=== PATIENT | female | born 1970 | race Two or more races ===

== ENCOUNTER 2024-05-20 13:43 | Emergency (ER) | payer MEDICAID, OTHER ==
[~2024-05-20] VITALS: Ht 152.4 cm; Wt 68.9 kg
--- NOTE | 2024-05-20 14:06 | ED.PDOC ---
Musculoskeletal HPI Comments HPI: Poor Historian. 53-year-old female complains of at least one month history of left lower extremity generalized pain. Patient is status post left fracture of femur proximally four months ago. That was due to a fall. Patient continues to have pain. Her PCP sent her today to rule out DVT. Patient denies any associated chest pain or shortness of breath. Patient denies any allergies Vital Signs BP: 163/62 HR: 83 Temp: 99 F SPO2: 97% RA RR: 16 Past medical history: Denies Past surgical history: Denies REVIEW OF SYSTEMS: CONSTITUTIONAL: Denies acute: fever, diaphoresis, chills, generalized weakness. HEAD: Denies acute: headache, photophobia Eyes: Denies acute: Double vision, vision loss, eye pain, eye discharge. EARS: Denies acute: tinnitus, hearing loss, ear discharge, ear pain, THROAT: Denies acute: sore throat, swelling, difficulty swallowing , pain with swallowing, change in voice. NECK: Denies acute: neck pain, neck swelling, stiff neck. HEART: Denies acute : chest pain, palpitations, LUNGS: Denies acute: SOB, wheezing, cough, hemoptysis ABDOMEN: Denies acute: abdominal pain, Nausea, Vomiting, diarrhea, melena , hematemesis, hematochezia SKIN: Denies acute: rash, redness, lesions, itchiness. EXTREMITIES: Denies acute: calf pain, numbness, tingling, weakness, Denies acute: Low back pain. Neuro: Denies acute: focal neurological deficit, motor or sensory focal neurological deficit, tremors, seizure like activity, confusion, dizziness, change in mental status, loss of bowel or bladder function, cauda equina like symptoms. : Denies acute: dysuria, hematuria, flank pain, increase in urinary frequency. PSYCH: Denies acute: hallucination, suicidal ideation, homicidal ideation. FEMALE: Denies acute: abnormal vaginal bleeding, foul odor, unusual discharge. PHYSICAL EXAM: General: no acute distress, awake and alert. Head: normocephalic, atraumatic. Neck: supple, trachea is midline, no swelling. Throat: Normal phonation. Eyes:, no erythema, no purulent discharge, no proptosis, no icterus. Heart: regular rate, regular rhythm, no significant murmur appreciated. Lungs: no apparent respiratory distress, Able to speak in full sentences. No wheezing, no rhonchi, no crackles. No stridors Clear to auscultation bilaterally. Abdomen: non tender to palpation, non distended, soft, no guarding, no rebound, + bowel sounds. Neuro: Awake, Alert, oriented to name, self, situation, follows commands GCS=15. Speech is normal. Skin: no petechia, no purpura, no cyanosis, non-pale, not jaundice. Lower extremities: --no - Pitting edema no deformity, no focal swelling, no calf TTP. Generalized above the knee on the left lower extremity tenderness to deep palpation. Patient is neurovascularly intact in the affected extremity. Pedal pulses palpable. Motor and sensory are present. Patient ambulates with a walker Makes eye contact. moves all four extremities. Face: no apparent facial droop. Time Seen by MD: 13:47 Reviewed Notes: Nurses Notes, Allergies Allergies: Coded Allergies: NO KNOWN ALLERGIES (Unverified , 05/20/24) Information Source: Patient Location: Left Past Medical History PAST MEDICAL HISTORY: Denies Surgical History: Denies all surgeries BOBBIN DISKER History: No Pertinent BOBBIN DISKER History Family History Family History: Reviewed,noncontributory to illness Social History Smoker: Non-Smoker Alcohol: Denies ETOH Use Drugs: Denies Drug Use Lives In: Home Was a procedure done? Was a procedure done?: No Differential Diagnosis EXT Differential Diagnosis: Cellulitis, Deep Vein Thrombosis, Sprain, Other (Leg swellingDdx include but not limited to DVT, ischemic limb, pitting edema, volume overload, CHF, cellulitis, hematoma, compartment syndrome, dependent edema, venous stasis.) X-Ray, Labs, Meds, VS Vital Signs Date Time Temp Pulse Resp B/P (MAP) Pulse Ox O2 Delivery O2 Flow Rate FiO2 05/20/24 18:49 71 16 134/71 (92) 98 05/20/24 14:06 99.0 83 16 163/62 (95) 97 Lab Test 05/20/24 20:38 05/20/24 14:35 Range/Units Urine Color Light-yellow Yellow Urine Clarity Clear Clear Urine pH 6.5 5.0-9.0 Urine Specific [employer] [facility] 1.042 H 1.001-1.035 Urine Protein Negative Negative Urine Ketones Negative Negative Urine Blood Negative Negative /uL Urine Nitrite Negative Negative Urine Bilirubin Negative Negative Urine Urobilinogen Normal Negative mg/dL Urine Leukocyte Esterase Negative Negative /uL Urine RBC 1 0 - 4 /hpf Urine WBC 1 0 - 5 /hpf Urine Squamous Epithelial Cells Few <5 /hpf Urine Bacteria None seen None Seen /hpf Urine Glucose Normal Normal mg/dL White Blood Count 9.2 4.4-10.8 10^3/uL Red Blood Count 4.90 4.0-5.20 10^6/uL Hemoglobin 14.4 12.2-16.2 g/dL Hematocrit 42.8 36.0-46.0 % Mean Corpuscular Volume 87.4 80.0-100.0 fL Mean Corpuscular Hemoglobin 29.4 28.0-32.0 pg Mean Corpuscular Hemoglobin Concent 33.6 32.0-36.0 g/dL Red Cell Distribution Width 14.3 11.8-14.3 % Platelet Count 365 140-450 10^3/uL Mean Platelet Volume 8.0 6.9-10.8 fL Neutrophils (%) (Auto) 59.1 37.0-80.0 % Lymphocytes (%) (Auto) 30.1 10.0-50.0 % Monocytes (%) (Auto) 7.3 0.0-12.0 % Eosinophils (%) (Auto) 2.2 0.0-7.0 % Basophils (%) (Auto) 1.3 0.0-2.0 % Neutrophils # (Auto) 5.4 1.6-8.6 10 ^3/uL Lymphocytes # (Auto) 2.8 0.4-5.4 10 ^3/uL Monocytes # (Auto) 0.7 0-1.3 10 ^3/uL Eosinophils # (Auto) 0.2 0-0.8 10 ^3/uL Basophils # (Auto) 0.1 0-0.2 10 ^3/uL Nucleated Red Blood Cells 0.0 % D-Dimer, Quantitative 0.68 H 0.0-0.49 mg/L FEU Sodium Level 143 136-145 mmol/L Potassium Level 4.2 3.5-5.1 mmol/L Chloride Level 107 98-107 mmol/L Carbon Dioxide Level 28 20-31 mmol/L Anion Gap 8 5-15 Blood Urea Nitrogen 9 9-23 mg/dL Creatinine 0.52 L 0.550-1.02 mg/dL Glomerular Filtration Rate Calc 110 >90 mL/min BUN/Creatinine Ratio 17.3 10.0-20.0 Serum Glucose 130 H 74-106 mg/dL Calcium Level 10.6 H 8.7-10.4 mg/dL Total Bilirubin 0.4 0.2-1.0 mg/dL Aspartate Amino Transferase (AST) 29 13-40 U/L Alanine Aminotransferase (ALT) 40 7-40 U/L Alkaline Phosphatase 98 46-116 U/L Creatine Kinase 55 34-145 U/L Troponin I High Sensitivity < 3 L </=34 ng/L Total Protein 7.5 5.7-8.2 g/dL Albumin 4.6 3.2-4.8 g/dL [place] [address] Ph: [phone] DIAGNOSTIC IMAGING Diagnostic Imaging Report : [id number] Signed PATIENT: MILLIE SMITH ACCT: [id number] UNIT: [id number] : 1970 LOC: ER ROOM / BED: / AGE / SEX: 53 / F ADM STATUS: REG ER SERVICE 1403 ORDERING PHYSICIAN: RIVKA PINTO DO PROCEDURE(s): LFEM - L FEMUR XRAY REASON: pain. remote fracture ORDER NUMBER(s): [id number], ACCESSION NUMBER(s): [id number] CLINICAL INDICATION: pain. remote fracture TECHNIQUE: 5 radiographic views of the left femur were obtained. Comparison: None FINDINGS/IMPRESSION: There is no evidence of acute fracture or dislocation. The visualized joint space is well maintained. The alignment is anatomical. There is no radiopaque foreign body. ATED BY: COLT ARREDONDO MD DICTATED DATE/TIME: 05/20/241445 SIGNED BY: COLT ARREDONDO MD SIGNED DATE/TIME: 05/20/241445 CC: [place] [address] Ph: [phone] DIAGNOSTIC IMAGING Diagnostic Imaging Report : [id number] Signed PATIENT: MILLIE SMITH ACCT: [id number] UNIT: [id number] : 1970 LOC: ER ROOM / BED: / AGE / SEX: 53 / F ADM STATUS: REG ER SERVICE 1401 ORDERING PHYSICIAN: RIVKA PINTO DO PROCEDURE(s): BLDVT - BiLat Lower DVT REASON: leg pain ORDER NUMBER(s): [id number], ACCESSION NUMBER(s): [id number] Bilateral lower extremity venous duplex Clinical History: leg pain Comparison: None Technique: Duplex Doppler evaluation of the deep venous systems of both lower extremities from the common femoral veins to the popliteal veins including color Doppler and spectral/pulsed waveform analysis was performed. Findings: RIGHT SIDE: The common femoral vein demonstrates appropriate compressibility and waveform variability. There is compressibility/patency of the great saphenous vein at the proximal thigh. The femoral vein demonstrates appropriate compressibility and waveform variability. The deep femoral vein demonstrates appropriate compressibility and waveform variability. The popliteal vein demonstrates appropriate compressibility and waveform variability. There is normal compressibility at the tibioperoneal trunk. LEFT SIDE: The common femoral vein demonstrates appropriate compressibility and waveform variability. There is compressibility/patency of the great saphenous vein at the proximal thigh. The femoral vein demonstrates appropriate compressibility and waveform variability. The deep femoral vein demonstrates appropriate compressibility and waveform variability. The popliteal vein demonstrates appropriate compressibility and waveform variability. There is normal compressibility at the tibioperoneal trunk. Impression: 1. No right or left femoropopliteal venous thrombosis. HS:Y ATED BY: BARBY CARTWRIGHT DO DICTATED DATE/TIME: 05/20/24 1505 SIGNED BY: BARBY CARTWRIGHT DO SIGNED DATE/TIME: 05/20/24 1505 CC: Time of 1ST Reevaluation: 16:36 Reevaluation 1ST: Unchanged Patient Education/Counseling: Diagnosis, Treatment Family Education/Counseling: No Family Present Comments Patient presented with the above HPI.--leg pain----workup was initiated. patient was found with the above mentioned diagnosis. Patient ED course and VS have been stabilized. Patient has been reassessed in the ED and remained in a stable condition. Pertinent incidental findings were discussed with the patient and/or family. Patient/family voices understanding and is agreeable with plan. Patient has been observed in the ED adequate length of time to insure improvement/stability. patient was discharged home in a stable condition. All the reports of any imaging studies that were ordered by myself were reviewed by myself. Departure 1 Departure Time of Disposition: 20:46 Impression: Primary Impression: Left leg pain Additional Impression: Pulmonary nodules Disposition: HOME / SELF CARE / HOMELESS Condition: Stable Additional Instructions: Additional discharge instructions: You MUST follow-up with your primary care/family doctor in 1 to 2 days. If you are unable to see your primary care/family doctor, please return to our emergency room for re-assessment and re-evaluation in 1 to 2 days. Return to the emergency room here in our facility or to the nearest ER [facility] if your symptoms change or worsen. CONSULTATIONS: you MUST Follow-up for consultation as soon as possible with: .-pulmonology and cardiology in 1-2 days. Please call for appointment. You MUST call the consultants office yourself to make an appointment. You may need to arrange that through your insurance and/or your primary/family doctor. If you are unable to see the jewelry consultant in 1 to 2 days, you must return to our emergency room (or any other ER of your choice) for re-assessment and re- evaluation. Adequate fluid hydration. Below is a copy of your radiological report for follow up: [place] [address] Ph: [phone] DIAGNOSTIC IMAGING Diagnostic Imaging Report : [id number] Signed PATIENT: MILLIE SMITH ACCT: [id number] UNIT: [id number] : 1970 LOC: ER ROOM / BED: / AGE / SEX: 53 / F ADM STATUS: REG ER SERVICE 1801 ORDERING PHYSICIAN: RIVKA PINTO DO PROCEDURE(s): CTACH - CT ANGIO CHEST CONTRAST REASON: elevated d dimer, leg pain, h/o cancer ORDER NUMBER(s): [id number], ACCESSION NUMBER(s): [id number] EXAM: CT CT ANGIO CHEST CONTRAST History: elevated d dimer, leg pain, h/o cancer Comparison Study: None available TECHNIQUE: A digital hog buyer image was obtained. During the uneventful, intravenous administration of contrast material, multislice data acquisition was obtained through the chest. 3-D postprocessing is performed by technologist including MIP imaging Radiation Dose : CTDI vol 12.85 mGy, DLP 425.2 mGy*cm. Findings: Lungs: Multiple scattered pulmonary nodules in both lungs. Pleura: Unremarkable Heart/Great vessels: The visualized heart is unremarkable. No cardiomegaly or pericardial effusion. No pulmonary embolism, aneurysm, or dissection. Mediastinum: Unremarkable Soft tissues/Bones: Mild multilevel degenerative changes of the thoracic spine. Cholecystectomy. The remaining partially visualized upper abdomen is within normal limits. Impression: 1. No evidence of pulmonary embolism, aortic aneurysm, or dissection. 2. Multiple scattered pulmonary nodules in both lungs consistent with history of malignancy. ATED BY: GABRIELLA NUNEZ DO DICTATED DATE/TIME: 05/20/242032 SIGNED BY: GABRIELLA NUNEZ DO SIGNED DATE/TIME: 05/20/242032 CC: [place] [address] Ph: [phone] DIAGNOSTIC IMAGING Diagnostic Imaging Report : [id number] Signed PATIENT: MILLIE SMITH ACCT: [id number] UNIT: [id number] : 1970 LOC: ER ROOM / BED: / AGE / SEX: 53 / F ADM STATUS: REG ER SERVICE 02 ORDERING PHYSICIAN: RIVKA PINTO DO PROCEDURE(s): LFEM - L FEMUR XRAY REASON: pain. remote fracture ORDER NUMBER(s): [id number], ACCESSION NUMBER(s): [id number] CLINICAL INDICATION: pain. remote fracture TECHNIQUE: 5 radiographic views of the left femur were obtained. Comparison: None FINDINGS/IMPRESSION: There is no evidence of acute fracture or dislocation. The visualized joint space is well maintained. The alignment is anatomical. There is no radiopaque foreign body. ATED BY: COLT ARREDONDO MD DICTATED DATE/TIME: 05/20/241445 SIGNED BY: COLT ARREDONDO MD SIGNED DATE/TIME: 05/20/241445 CC: [place] [address] Ph: [phone] DIAGNOSTIC IMAGING Diagnostic Imaging Report : [id number] Signed PATIENT: MILLIE SMITH ACCT: [id number] UNIT: [id number] : 1970 LOC: ER ROOM / BED: / AGE / SEX: 53 / F ADM STATUS: REG ER SERVICE 1401 ORDERING PHYSICIAN: RIVKA PINTO DO PROCEDURE(s): BLDVT - BiLat Lower DVT REASON: leg pain ORDER NUMBER(s): [id number], ACCESSION NUMBER(s): [id number] Bilateral lower extremity venous duplex Clinical History: leg pain Comparison: None Technique: Duplex Doppler evaluation of the deep venous systems of both lower extremities from the common femoral veins to the popliteal veins including color Doppler and spectral/pulsed waveform analysis was performed. Findings: RIGHT SIDE: The common femoral vein demonstrates appropriate compressibility and waveform variability. There is compressibility/patency of the great saphenous vein at the proximal thigh. The femoral vein demonstrates appropriate compressibility and waveform variability. The deep femoral vein demonstrates appropriate compressibility and waveform variability. The popliteal vein demonstrates appropriate compressibility and waveform variability. There is normal compressibility at the tibioperoneal trunk. LEFT SIDE: The common femoral vein demonstrates appropriate compressibility and waveform variability. There is compressibility/patency of the great saphenous vein at the proximal thigh. The femoral vein demonstrates appropriate compressibility and waveform variability. The deep femoral vein demonstrates appropriate compressibility and waveform variability. The popliteal vein demonstrates appropriate compressibility and waveform variability. There is normal compressibility at the tibioperoneal trunk. Impression: 1. No right or left femoropopliteal venous thrombosis. HS:Y ATED BY: BARBY CARTWRIGHT DO DICTATED DATE/TIME: 05/20/24 1505 SIGNED BY: BARBY CARTWRIGHT DO SIGNED DATE/TIME: 05/20/24 1505 CC: Discharged With: Self Critical Care Note Critical Care Time?: No I personally scribed for RIVKA PINTO DO ([email or web address]) on 05/20/24 at 16:36. Electronically submitted by Amanda York ([facility]). I personally scribed for RIVKA PINTO DO ([email or web address]) on 05/20/24 at 17:17. Electronically submitted by Amanda York ([facility]). I personally scribed for RIVKA PINTO DO ([facility]) on 05/20/24 at 19:55. Electronically submitted by Amanda York ([facility]). I personally scribed for RIVKA PINTO DO ([facility]) on 05/20/24 at 20:56. Electronically submitted by Amanda York ([facility]). RIVKA PINTO DO May 20, 2024 14:06
--- NOTE | 2024-05-20 14:47 | DVH ---
CLINICAL INDICATION: pain. remote fracture TECHNIQUE: 5 radiographic views of the left femur were obtained. Comparison: None FINDINGS/IMPRESSION: There is no evidence of acute fracture or dislocation. The visualized joint space is well maintained. The alignment is anatomical. There is no radiopaque foreign body.
[2024-05-20 15:00] LABS: Basophils # (auto) 0.1 10 ^3/uL (0-0.2); Basophils % (auto) 1.3 % (0.0-2.0); Eosinophils # (auto) 0.2 10 ^3/uL (0-0.8); Eosinophils % (auto) 2.2 % (0.0-7.0); Hematocrit 42.8 % (36.0-46.0); Hemoglobin 14.4 g/dL (12.2-16.2); Lymphocytes # (auto) 2.8 10 ^3/uL (0.4-5.4); Lymphocytes % (auto) 30.1 % (10.0-50.0); Mean Corpuscular Hemoglobin 29.4 pg (28.0-32.0); Mean Corpuscular Hgb Conc. 33.6 g/dL (32.0-36.0); Mean Corpuscular Volume 87.4 fL (80.0-100.0); Monocytes # (auto) 0.7 10 ^3/uL (0-1.3); Monocytes % (auto) 7.3 % (0.0-12.0); Neutrophils # (auto) 5.4 10 ^3/uL (1.6-8.6); Neutrophils % (auto) 59.1 % (37.0-80.0); Platelet Count (auto) 365 10^3/uL (140-450); Red Cell Distribution Width 14.3 % (11.8-14.3); White Blood Cell 9.2 10^3/uL (4.4-10.8)
--- NOTE | 2024-05-20 15:07 | DVH ---
Bilateral lower extremity venous duplex Clinical History: leg pain Comparison: None Technique: Duplex Doppler evaluation of the deep venous systems of both lower extremities from the common femora l veins to the popliteal veins including color Doppler and spectral/pulsed waveform analysis was perf ormed. Findings: RIGHT SIDE: The common femoral vein demonstrates appropriate compressibility and waveform variability. There is compressibility/patency of the great saphenous vein at the proximal thigh. The femoral vein demonstrates appropriate compressibility and waveform variability. The deep femoral vein demonstrates appropriate compressibility and waveform variability. The popliteal vein demonstrates appropriate compressibility and waveform variability. There is normal compressibility at the tibioperoneal trunk. LEFT SIDE: The common femoral vein demonstrates appropriate compressibility and waveform variability. There is compressibility/patency of the great saphenous vein at the proximal thigh. The femoral vein demonstrates appropriate compressibility and waveform variability. The deep femoral vein demonstrates appropriate compressibility and waveform variability. The popliteal vein demonstrates appropriate compressibility and waveform variability. There is normal compressibility at the tibioperoneal trunk. Impression: 1. No right or left femoropopliteal venous thrombosis. HS:Y
[2024-05-20 16:32] LABS: Alanine Aminotransferase 40 U/L (7-40); Albumin 4.6 g/dL (3.2-4.8); Alkaline Phosphatase 98 U/L (46-116); Anion Gap 8 (5-15); Aspartate Aminotransferase 29 U/L (13-40); BUN/Creatinine Ratio 17.3 (10.0-20.0); Bilirubin, Total 0.4 mg/dL (0.2-1.0); Blood Urea Nitrogen 9 mg/dL (9-23); Calcium 10.6 mg/dL (8.7-10.4); Carbon Dioxide 28 mmol/L (20-31); Chloride 107 mmol/L (98-107); Glucose 130 mg/dL (74-106); Potassium 4.2 mmol/L (3.5-5.1); Sodium 143 mmol/L (136-145); Total Protein 7.5 g/dL (5.7-8.2)
[2024-05-20 18:49] VITALS: BP 134/71; PULSE 71; RESP 16; O2SAT 98
[2024-05-20] MEDS: IOHEXOL 350 MG/ML 100ML IJ ONE ×2 (19:05→19:34)
--- NOTE | 2024-05-20 20:35 | DVH ---
EXAM: CT CT ANGIO CHEST CONTRAST History: elevated d dimer, leg pain, h/o cancer Comparison Study: None available TECHNIQUE: A digital fine arts instructor image was obtained. During the uneventful, intravenous administration of c ontrast material, multislice data acquisition was obtained through the chest. 3-D postprocessing is performed by technologist including MIP imaging Radiation Dose : CTDI vol 12.85 mGy, DLP 425.2 mGy*cm. Findings: Lungs: Multiple scattered pulmonary nodules in both lungs. Pleura: Unremarkable Heart/Great vessels: The visualized heart is unremarkable. No cardiomegaly or pericardial effusion. N o pulmonary embolism, aneurysm, or dissection. Mediastinum: Unremarkable Soft tissues/Bones: Mild multilevel degenerative changes of the thoracic spine. Cholecystectomy. The remaining partially visualized upper abdomen is within normal limits. Impression: 1. No evidence of pulmonary embolism, aortic aneurysm, or dissection. 2. Multiple scattered pulmonary nodules in both lungs consistent with history of malignancy.
[2024-05-20 20:40] LABS: Urine Bacteria None Seen /hpf (None Seen)
[2024-05-20 20:50] LABS: Urine Blood Negative /uL (Negative); Urine Clarity Clear (Clear); Urine Color Light-Yellow (Yellow); Urine Protein, UAD Negative (Negative); Urine Specific Gravity 1.042 (1.001-1.035); Urine Urobilinogen Normal (Negative); Urine WBC 1 /hpf (0 - 5); Urine pH 6.5 (5.0-9.0)
[2024-05-20] MEDS: HYDROcodone-ACET 5/325MG TAB PO ONE (22:31)
== END 2024-05-20 20:38 | disposition left against medical advice (07) ==
LOC: ER 13:43
DX: R91.8 Other nonspecific abnormal finding of lung field (principal); M79.652 Pain in left thigh; R07.9 Chest pain, unspecified; R79.89 Other specified abnormal findings of blood chemistry; I82.403 Acute embolism and thrombosis of unspecified deep veins of lower extremity, bilateral
CPT/HCPCS: 36415; 71275; 73552; 80053; 81001; 82550; 84484; 85025; 85379; 93970; 99285; Q9967